=== PATIENT | female | born 2005 | race Caucasian/White ===

== ENCOUNTER 2023-02-26 16:28 | Emergency (ER) | payer SELFPAY ==
[2023-02-26 16:42] VITALS: BMI 23.3
[2023-02-26] MEDS ORDERED: DOXYCYCLINE HYCLATE 100 MG CAPSULE PO ONE ×2 (18:52→19:51)
[2023-02-26] MEDS ORDERED: WATER FOR INJ,STERILE 10 ML ONE (19:51)
[2023-02-26 20:21] LABS: BASO % 0.7 % (0-2.0); EOS % 2.9 % (0-4.5); HEMOGLOBIN 11.3 GM/dL (10.7-15.3); LYMPH % 32.5 % (8-40); MCH 24.8 pg (25.7-33.7); MCHC 32.3 g/dl (32.0-36.0); MEAN CELL VOLUME 76.6 fl (80-96); MEAN PLT VOLUME 8.7 fl (7.5-11.1); MONO % 6.7 % (3.8-10.2); NEUT % 57.2 % (42.8-82.8); PLATELET COUNT 294 10^3/uL (134-434); RBC 4.56 M/mm3 (3.60-5.2); RDW 16.5 % (11.6-15.6); WHITE BLOOD COUNT 7.3 K/mm3 (4.0-10.0)
[2023-02-26 20:39] LABS: POTASSIUM 3.8 mmol/L (3.5-5.1)
[2023-02-26 20:41] LABS: CALCIUM 8.7 mg/dL (8.5-10.1)
[2023-02-26 20:42] LABS: ALBUMIN 4.1 g/dl (3.4-5.0); BLOOD UREA NITROGEN 15.1 mg/dL (7-18)
[2023-02-26 20:45] LABS: CREATININE 0.6 mg/dL (0.55-1.3)
[2023-02-26 20:46] LABS: BILIRUBIN,TOTAL 0.4 mg/dL (0.2-1)
[2023-02-26 20:47] LABS: TOT PROT 7.6 g/dl (6.4-8.2)
[2023-02-26 22:53] VITALS: BP 104/68; PULSE 72; RESP 19; TEMP 97.8
== END 2023-02-26 22:54 | disposition home or self-care (01) ==
LOC: JERFT 16:28
PROC: 3E023GC Introduction of Other Therapeutic Substance into Muscle, Percutaneous Approach (ICD-10-PCS; principal; 2023-02-26)
DX: N64.4 Mastodynia (principal); R11.0 Nausea; R68.83 Chills (without fever); R42 Dizziness and giddiness; L29.9 Pruritus, unspecified; R59.0 Localized enlarged lymph nodes; R10.30 Lower abdominal pain, unspecified; N72 Inflammatory disease of cervix uteri; N73.9 Female pelvic inflammatory disease, unspecified
CPT/HCPCS: 36415; 80053; 84703; 85025; 86695; 86696; 86780; 87389; 87491; 87522; 87591; 87661; 93005; 93010; 99284-25

== ENCOUNTER 2023-04-23 15:14 | Emergency (ER) | payer OTHER ==
[2023-04-23 15:25] VITALS: TEMP 97.7; BMI 23.2
[2023-04-23] MEDS ORDERED: MAG HYDROX/AL HYDROX/SIMETH 30 ML UNIT-DOSE CUP PO ONE (16:24)
[2023-04-23] MEDS ORDERED: MAG HYDROX/AL HYDROX/SIMETH 30 ML UNIT-DOSE CUP ONE (16:39)
[2023-04-23 17:18] LABS: THROAT:GRP A STREP NOT DETECTED (NOTDETECTED)
[2023-04-23 21:45] VITALS: BP 112/78; PULSE 88; RESP 18
== END 2023-04-23 21:45 | disposition home or self-care (01) ==
LOC: JER 15:14
DX: R07.0 Pain in throat (principal); R09.89 Other specified symptoms and signs involving the circulatory and respiratory systems; J02.9 Acute pharyngitis, unspecified; R51.9 Headache, unspecified; R68.83 Chills (without fever); R06.02 Shortness of breath; G47.9 Sleep disorder, unspecified; Z20.822 Contact with and (suspected) exposure to COVID-19
CPT/HCPCS: 0241U-QW; 70360-TC-FY; 70490-TC; 71046-TC-FY; 87070; 87651; 99285-25

== ENCOUNTER 2024-06-01 09:38 | Emergency (ER) | payer OTHER ==
[2024-06-01 09:59] VITALS: BP 110/80; PULSE 62; RESP 18; TEMP 98.6; BMI 23.3
[2024-06-01 14:13] LABS: HIV INTERPRETATION NEGATIVE (NEGATIVE)
== END 2024-06-01 11:40 | disposition home or self-care (01) ==
LOC: JERFT 09:38
DX: R19.7 Diarrhea, unspecified (principal); L23.6 Allergic contact dermatitis due to food in contact with the skin
CPT/HCPCS: 36415; 86803; 87389; 99283-25